=== PATIENT | male | born 1965 | race Caucasian/White ===

== ENCOUNTER → 2022-03-11 | Day surgery (SDC) | payer OTHER ==
[2022-03-05 14:00] VITALS: BMI 28.5
[~2022-03-11] MED LIST: FENTANYL CITRATE/PF 50 MCG/ML VIAL ONE; ONDANSETRON 4 MG/2 ML VIAL ONE
[2022-03-11 09:19] VITALS: RESP 18
[2022-03-11 13:33] VITALS: BP 130/86; PULSE 71; TEMP 98.1
== END | disposition home or self-care (01) ==
LOC: JASU-SURG 04:14
PROVIDERS: ATTEND Urology
PROC: 0TF4XZZ Fragmentation in Left Kidney Pelvis, External Approach (ICD-10-PCS; principal; 2022-03-11 11:30)
DX: N20.0 Calculus of kidney (principal)